=== PATIENT | male | born 1955 | race Caucasian/White ===

== ENCOUNTER 2018-11-10 16:49 | Emergency (ER) | payer MEDICARE ==
[~2018-11-10] VITALS: Ht 170.2 cm; Wt 90.9 kg
[2018-11-10] MEDS ORDERED: LEVE250T55 PO (17:06)
[2018-11-10] MEDS ORDERED: IBUPROFEN 800 MG TABLET PO ONE (19:30)
[2018-11-10 20:11] VITALS: BP 145/105
[2018-11-10] MEDS ORDERED: BACITRACIN 0.9 GM PACKET OINTMENT TP ONE (20:15)
[2018-11-10] MEDS ORDERED: CloNIDine 0.1 MG/24 HOUR PATCH TD ONE (20:15)
== END 2018-11-10 20:44 | disposition home or self-care (01) ==
LOC: EMS 16:51
DX: S43.101A Unspecified dislocation of right acromioclavicular joint, initial encounter (principal); S00.81XA Abrasion of other part of head, initial encounter; R03.0 Elevated blood-pressure reading, without diagnosis of hypertension; E03.9 Hypothyroidism, unspecified; Z79.899 Other long term (current) drug therapy; W01.0XXA Fall on same level from slipping, tripping and stumbling without subsequent striking against object, initial encounter; Y93.01 Activity, walking, marching and hiking; Y92.89 Other specified places as the place of occurrence of the external cause; Y99.8 Other external cause status

== ENCOUNTER 2023-09-14 22:00 | Emergency (ER) | payer MEDICARE, BC ==
[~2023-09-14] VITALS: Ht 175.3 cm; Wt 95.0 kg
[~2023-09-14 22:00] MED LIST: ASPI-1450 PO; LAMO-24 PO; LEVE750T10 PO; LEVO50 PO
[2023-09-14 22:03] VITALS: TEMP 97.9
[2023-09-15 00:56] VITALS: BP 138/79; PULSE 79; RESP 18
[2023-09-15 01:16] LABS: BASOPHILS % (AUTO) 0.5 % (0.0-2.0); EOSINOPHILS % (AUTO) 4.6 % (1.0-6.0); HEMATOCRIT 36.5 % (41-53); HEMOGLOBIN 11.9 g/dL (13.5-17.5); LYMPHOCYTES # (AUTO) 0.8 K/uL (1.0-4.8); LYMPHOCYTES % (AUTO) 19.9 % (22.0-44.0); MEAN CORPUSCULAR HEMOGLOBIN 28.5 pg (26.0-34.0); MEAN CORPUSCULAR HGB CONC 32.6 G/dL (31.0-37.0); MEAN CORPUSCULAR VOLUME 87 fL (80-100); MONOCYTES # (AUTO) 0.4 K/uL (0.1-1.0); MONOCYTES % (AUTO) 9.2 % (2.0-9.0); NEUTROPHILS # (AUTO) 2.8 K/uL (1.8-7.7); NEUTROPHILS % (AUTO) 65.8 % (40.0-70.0); PLATELET COUNT (AUTO) 176 K/uL (150-450); RED BLOOD CELL COUNT(AUTO) 4.19 MIL/uL (4.50-5.90); WHITE BLOOD COUNT (AUTO) 4.2 K/uL (4.5-11.0)
[2023-09-15 01:34] LABS: CALCIUM, TOTAL 8.5 mg/dL (8.8-10.5); CREATININE 1.24 mg/dL (0.60-1.30); POTASSIUM 4.2 mmol/L (3.5-5.1)
[2023-09-15 01:42] LABS: TROPONIN I-HIGH SENSITIVITY 5 ng/L (<76)
[2023-09-15] MEDS: MECLIZINE HCL 25 MG TABLET PO ONE (02:15)
== END 2023-09-15 05:20 | disposition home or self-care (01) ==
LOC: EMS 22:00
DX: R42 Dizziness and giddiness (principal); R07.9 Chest pain, unspecified; E03.9 Hypothyroidism, unspecified; R56.9 Unspecified convulsions
CPT/HCPCS: 80048; 84484; 85025; 93005; 99284